=== PATIENT | female | born 1980 | race Caucasian/White ===

== ENCOUNTER 2020-05-20 11:08 | Outpatient (CLI) | payer BC, SELFPAY ==
--- NOTE | 2020-05-20 11:23 | XR_ITS ---
WS: [id number] Left foot, 3 views, 05/20/2020 Clinical Data: LEFT FOOT PAIN Comparison: None. Findings: No fractures or dislocations are seen. No bone destruction or erosion is noted. The joint spaces and soft tissues are normal. Mild flexion deformity of the second through fifth toes is seen. There is an Achilles spur. XR/XR foot LT min 3V* [id number] Impression: Negative left foot.
== END 2020-05-20 11:09 | disposition home or self-care (01) ==
PROVIDERS: PCP Family Medicine; Visit Provider Family Medicine
DX: M79.672 Pain in left foot (principal)
CPT/HCPCS: 73630

== ENCOUNTER 2021-01-13 08:34 | Outpatient (CLI) | payer BC, SELFPAY ==
[2021-01-13 09:20] VITALS: BP 100/67; PULSE 96; RESP 18; TEMP 36.8; O2SAT 98; BMI 31.2
[2021-01-13 10:00] VITALS: BP 93/55; PULSE 96; RESP 18; O2SAT 94
[2021-01-13 10:58] VITALS: BP 95/55; PULSE 98; RESP 18; TEMP 37; O2SAT 96
== END 2021-01-13 08:35 | disposition home or self-care (01) ==
LOC: OPS 08:39
PROVIDERS: PCP Family Medicine; Visit Provider Family Medicine
DX: U07.1 COVID-19 (principal)
CPT/HCPCS: 96365

== ENCOUNTER 2021-01-16 11:56 | Emergency (ER) | payer BC, SELFPAY ==
[2021-01-16] VITALS (7 sets, daily range): BP systolic 88–111; BP diastolic 64–75; PULSE 72–93; RESP 14–18; TEMP 37.1; O2SAT 98–99; BMI 31.2
--- NOTE | 2021-01-16 12:28 | W.ED.NAVMDI ---
HPI - Nausea/Vomiting/Diarrhea General: Chief complaint: Nausea/Vomiting/Diarrhea Stated complaint: Covid (+): weak, SOB, n/v Time Seen by Provider: 01/16/21 12:24 History of Present Illness: HPI Narrative: Patient relates she has had COVID symptoms for a couple weeks. Was diagnosed on 01 10 with Covid. But had symptoms week prior. Since she had a Bam infusion she has had some nausea and vomiting and diarrhea and abdominal discomfort no cough. Says she not able to hold much down feels dizzy. MD elicited complaint: nausea, vomiting, diarrhea and abdominal pain Pertinent past history: other (Covid) Onset (ago): day(s) Associated nausea: Yes Associated abdominal pain: Yes Location of pain: Diffuse Relieving factors: none Associated symtoms: Reports dizziness and nausea; Denies anxiety, change in vision or chest pain Review of Systems Const: Denies: fever(s), chills or body aches Eyes: Denies: change in vision or blurry vision ENMT: Denies: throat pain or nasal congestion Card: Denies: chest pain or dyspnea on exertion Resp: Denies: dyspnea, productive cough or non-productive cough GI: Reports: abdominal pain, nausea, vomiting and diarrhea Musc: Denies: extremity pain Skin/Breast: Denies: rash Neuro: Reports: dizziness Psych: Denies: anxiety or depression Kodak/Lymph: Denies: easy bruising Physical Exam Const: COMMON NORMALS: no acute distress GENERAL APPEARANCE: cooperative Resp: COMMON NORMALS: normal respiratory effort Psych: COMMON NORMALS: cooperative Skin: COMMON NORMALS: no rashes or lesions noted GENERAL SKIN EXAM: no rashes or lesions noted Course Vital Signs: Vital signs: Vital Signs Temperature 98.8 F 01/16/21 12:14 Pulse Rate 72 01/16/21 14:57 Respiratory Rate 18 01/16/21 14:57 Blood Pressure 106/64 01/16/21 14:57 Pulse Oximetry 98 01/16/21 14:57 MDM - Nausea/Vomiting/Diarrhea MDM Narrative: Medical decision making narrative: With Covid symptoms. Abdominal discomfort. Labs normal except urine shows urobilinogen bili does have 2+ bacteria but many epithelial cells so does not appear to be urinary tract infection. Symptoms consistent with Covid diagnosis. Medication did help still has slight nausea fluids were done patient discharged home to increase fluids take medication. Lab Data: Labs: Lab Results 01/16/21 01/16/21 01/16/21 Range/Units 12:50 12:50 13:55 WBC 7.1 (4.0-10.0) 10^3/ uL RBC 4.52 (4.1-5.3) 10^6/u L Hgb 11.8 (11.5-15.3) g/dL Hct 36.9 L (37.0-47.0) % MCV 81.6 (81-99) fl MCH 26.1 L (28.0-34.0) pg MCHC 32.0 (30.0-36.0) g/dL RDW 14.6 (12.1-15.1) % Plt Count 322 (130-400) 10^3/c mm MPV 9.8 (7.4-10.4) fL Neut % (Auto) 67.1 % Lymph % (Auto) 24.8 % [place] % (Auto) 6.2 % Eos % (Auto) 0.1 % Baso % (Auto) 0.1 % Neut # (Auto) 4.78 (1.8-7.7) 10^3/u L Lymph # (Auto) 1.8 (0.8-4.8) 10^3/u L [place] # (Auto) 0.4 (0.2-0.9) 10^3/u L Eos # (Auto) 0.0 (0.0-0.8) 10^3/u L Baso # (Auto) 0.0 (0.0-0.1) 10^3/u L Nucleated RBC % (a uto) 0 % Nucleated RBCs # 0.0 /100WBC Sodium 138 (136-145) mmol/L Potassium 3.5 (3.5-5.1) mmol/L Chloride 103 (98-107) mmol/L Carbon Dioxide 25 (22-29) mmol/L Anion Gap 13.5 (5-19) BUN 14 (6-20) mg/dL Creatinine 0.6 (0.5-0.9) mg/dL GFR Calculation 111.3 (90-130) mL/min Glucose 87 (65-115) mg/dL Calculated Osmolal ity 286 (285-295) mOsm/k g Calcium 8.0 L (8.5-10.5) mg/dL Urine Color Dark yellow (Yellow) Urine Appearance Cloudy (CLEAR) Urine pH 6 (5-7) Ur Specific Gravit y 1.010 (1.005-1.030) Urine Protein Trace (Negative) Urine Glucose (UA) Norm (Normal) Urine Ketones Negative (Negative) Urine Blood Neg (Negative) Urine Nitrate Negative (Negative) Urine Bilirubin 1+ H (Negative) Urine Urobilinogen 4 H (Negative) mg/dL Ur Leukocyte Bailey ase Negative (Negative) Urine RBC None (0-2) /hpf Urine WBC 0-4 H (0-5) /hpf Ur Squamous Epith Cells 15-25 H (0-5) /hpf Amorphous Sediment Not Reportable Urine Bacteria 2+ H (NONE) /hpf Urine Mucus 2+ /hpf Discharge Plan Discharge Patient Disposition: Home Clinical Impression: COVID-19 Abdominal pain Qualifiers: Abdominal location: generalized Qualified Code(s): R10.84 - Generalized abdominal pain Condition: Stable Prescriptions: New Zofran 4 mg tablet 4 mg PO Q8H 3 Days Qty: 9 RF: 0 Celebrex 100 mg capsule 100 mg PO BID Qty: 20 RF: 0 No Action aspirin 81 mg tablet,delayed release (DR/EC) 81 mg PO DAILY RF: 0 levothyroxine 50 mcg tablet 50 mcg PO DAILY RF: 0 zinc gluconate 50 mg tablet 50 mg PO DAILY RF: 0 Tri-Estarylla 0.18/0.215/0.25 mg-35 mcg (28) tablet 1 tab PO DAILY RF: 0 Vitamin D3 50 mcg (2,000 unit) capsule 2,000 mcg PO DAILY RF: 0 Discharge Orders: Discharge ED (Routine); Ordered 01/16/21 Ordered By: Marcial Silverman Referrals: Gibran Jacques MD [Primary Care Provider] - Discharge Diet: Advance as tolerated Discharge Activity: Increase activity as tolerated Patient Instructions: Viral Syndrome (ED) Activity Restrictions/Additional Instructions: Follow-up with medical provider as directed. Take medications as prescribed. Return to the ER or your medical provider if condition worsens. Please read and understand discharge instructions. If any questions ask please. Coding Level of Care Code ED Broomcorn Thresher for Chg Fwd Exam Expanded Problem Focused
[2021-01-16] MEDS: sodium chloride 0.9% 1,000 ML 999 ML IV (12:53)
[2021-01-16] MEDS: ondansetron 2 mg/ML SDV 2 mL 8 MG IVP (12:53)
--- NOTE | 2021-01-16 13:19 | PC.NURSE ---
patient c/o body ache 06/17, no acute distress noted.
[2021-01-16 13:20] LABS: Basophils % 0.1 %; Eosinophils % 0.1 %; Hematocrit 36.9 % (37.0-47.0); Hemoglobin 11.8 g/dL (11.5-15.3); Lymphocytes # 1.8 10^3/uL (0.8-4.8); Lymphocytes % 24.8 %; Mean Corpuscular Hemoglobin 26.1 pg (28.0-34.0); Mean Corpuscular Volume 81.6 fl (81-99); Mean Platelet Volume 9.8 fL (7.4-10.4); Monocytes # 0.4 10^3/uL (0.2-0.9); Monocytes % 6.2 %; Neutrophils # 4.78 10^3/uL (1.8-7.7); Neutrophils % 67.1 %; Nucleated Red Blood Cells % 0 %; Platelet Count 322 10^3/cmm (130-400); Red Blood Count 4.52 10^6/uL (4.1-5.3); Red Cell Distribution Width 14.6 % (12.1-15.1); White Blood Count 7.1 10^3/uL (4.0-10.0)
[2021-01-16 13:31] LABS: Anion Gap 13.5 (5-19); Blood Urea Nitrogen 14 mg/dL (6-20); Carbon Dioxide 25 mmol/L (22-29); Chloride 103 mmol/L (98-107); Glomerular Filtration Rate 111.3 mL/min (90-130); Glucose 87 mg/dL (65-115); Osmolality Calculated 286 mOsm/kg (285-295); Potassium 3.5 mmol/L (3.5-5.1); Sodium 138 mmol/L (136-145)
[2021-01-16 14:49] LABS: Add Urine Microscopic? YES; Bilirubin Urine 1+ (Negative); Blood Urine Neg (Negative); Glucose Urine UA Norm (Normal); Ketones Urine Negative (Negative); Leukocyte Esterase Urine Negative (Negative); Nitrate Urine Negative (Negative); Protein Urine Trace (Negative); Urine Appearance Cloudy (CLEAR); Urine Color Dark Yellow (Yellow); Urobilinogen Urine 4 mg/dL (Negative); pH Urine 6 (5-7)
[2021-01-16] MEDS: metoclopramide 5 mg/mL SDV 2 mL IVP (14:53)
[2021-01-16 15:16] LABS: Bacteria Urine 2+ /hpf; Mucus Urine 2+ /hpf; Squamous Epithelial Cell Urine 15-25 /hpf (0-5); WBC Urine 0-4 /hpf (0-5)
[2021-01-16 15:17] LABS: Add Urine Culture? No
[2021-01-16 15:43] LABS: Lipase 95 U/L (13-60)
--- NOTE | 2021-01-16 15:54 | USR_ITS ---
PROCEDURE INFORMATION: Exam: US Abdomen Complete Exam date and time: 01/16/2021 3:54 PM Age: 41 years old Clinical indication: Abdominal pain; Additional info: Luq pain TECHNIQUE: Imaging protocol: Real-time ultrasound of the abdomen with image documentation. COMPARISON: US OB Limited [id number] 01/15/2019 10:02 AM FINDINGS: Liver: Unremarkable. Gallbladder: Poorly seen but possibly contracted with stones. Common bile duct: No stones. No ductal dilatation. Pancreas: Unremarkable as visualized. Right kidney: No mass. No definite stones. No hydronephrosis. Left kidney: No mass. No definite stones. No hydronephrosis. Spleen: Unremarkable. Aorta: Unremarkable as visualized. No aneurysm. Inferior vena cava: Unremarkable as visualized. US/US abdomen complete* [id number] IMPRESSION: Suboptimal visualization of the gallbladder, possibly contracted with stones. If clinically indicated, HIDA scan would provide a more sensitive evaluation for acute gallbladder pathology.
[2021-01-16 16:50] LABS: Alanine Aminotransferase 218 U/L (0-33); Aspartate Amino Transferase 70 U/L (0-32); Gamma Glutamyl Transferase 39 U/L (5-36); Lactate Dehydrogenase 242 U/L (135-214)
--- NOTE | 2021-01-16 18:24 | ED_ITS ---
HPI - Abdominal Pain General: Chief Complaint: Nausea/Vomiting/Diarrhea Stated Complaint: Covid (+): weak, SOB, n/v Time Seen by Provider: 01/16/21 12:24 Source: patient Mode of arrival: ambulatory Limitations: no limitations History of Present Illness: HPI narrative: Covid + on 11th day of quarantine. Developed significant right upper quadrant pain, intolerance to most foods has not been able to eat in 5 days. MD elicited complaint: abdominal pain Pertinent past history: other (Covid infection) Pain Consistency: constant Location: RUQ Severity: severe Pain scale (0-10): 9 Quality: sharp and dull Migration to: no migration Exacerbating factors: eating and movement Relieving factors: nothing Associated Symptoms: Reports diarrhea, nausea, poor appetite and vomiting Review of Systems General: Reports: 10 or more systems reviewed and unremarkable except in HPI and below GI: Reports: abdominal pain (RUQ), nausea, vomiting and diarrhea Physical Exam Const: COMMON NORMALS: average body habitus, patient oriented x3, alert and well nourished GENERAL APPEARANCE: ill appearing HENMT: COMMON NORMALS: normocephalic and atraumatic HEAD & SCALP: normocephalic and atraumatic Eye: COMMON NORMALS: Equal, round and reactive pupils present and EOMs intact bilaterally PUPIL: Yes Equal, round and reactive pupils present Neck/C-Spine: COMMON NORMALS: full ROM and no lymphadenopathy GI: COMMON NORMALS: Soft to palpation INSPECTION: Yes normal to inspection AUSCULTATION: Yes normoactive bowel sounds PALPATION: Yes Soft to palpation and Yes Tenderness to palpation present (GI) Details: RUQ ([place] sign +) : COMMON NORMALS: Yes no CVA tenderness BLADDER/KIDNEY EXAM: Yes no CVA tenderness Back/Pelvis: COMMON NORMALS: no CVA tenderness Neuro: COMMON NORMALS: patient oriented x3 SENSORIUM/ORIENTATION: Yes alert Psych: COMMON NORMALS: mental status grossly normal, Normal thought process present, cooperative, normal affect, speech normal, activity/motor behavior normal and denies hallucinations SPEECH: Yes normal speech THOUGHT PROCESS: Normal thought process present Skin: COMMON NORMALS: no rashes or lesions noted, no wounds, turgor normal, no jaundice, no petechiae and no mottling GENERAL SKIN EXAM: no rashes or lesions noted and turgor normal Course ED course: Assumed care from Marcial PETERSENP. Unable to visualize gallbladder through ultrasound, will complete further imaging through recommendation of radiologist. Patient has significant right upper quadrant pain along with significant nausea. Will complete CT with contrast and attempts for better visualization of gallbladder. Patient is on day 11 of quarantine- Covid positive. Reevaluation(s): Reevaluation #1: Discussed case with Dr. Medrano he feels that he can follow-up with patient next week. No further imaging necessary at this time. Patient will schedule follow-up appointment with Dr. Jacques. Discussed symptoms with patient that would warrant a return to the emergency department or immediate evaluation including dyspnea and respiratory distress worsening of Covid symptoms along with inability to hold fluids down despite taking medication for nausea and vomiting. She is to wear her scopolamine patch for that the next 3 days. Any change in severity to her abdominal pain, or vomiting of bile. Discussed the case this complex due to her Mag lithiasis and concurrent COVID-[address] revealed constipation with moderately retained stool patient will follow at home [id number] constipation regimen of choice. Time: 20:56 Vital Signs: Vital signs: Vital Signs Temperature 98.8 F 01/16/21 12:14 Pulse Rate 76 01/16/21 20:19 Respiratory Rate 17 01/16/21 20:19 Blood Pressure 109/64 01/16/21 20:19 Pulse Oximetry 99 01/16/21 20:19 MDM - Abdominal Pain MDM Narrative: Medical decision making narrative: Discussed case with Dr. Medrano awaiting CT of abdomen and pelvis. 1 L of lactated Ringer's in addition to Protonix and scopolamine patch given at his request. Lab Data: Attestation: I reviewed the patient's lab results. Labs: Lab Results 01/16/21 01/16/21 01/16/21 Range/Units 12:50 12:50 12:50 WBC 7.1 (4.0-10.0) 10^3/ uL RBC 4.52 (4.1-5.3) 10^6/u L Hgb 11.8 (11.5-15.3) g/dL Hct 36.9 L (37.0-47.0) % MCV 81.6 (81-99) fl MCH 26.1 L (28.0-34.0) pg MCHC 32.0 (30.0-36.0) g/dL RDW 14.6 (12.1-15.1) % Plt Count 322 (130-400) 10^3/c mm MPV 9.8 (7.4-10.4) fL Neut % (Auto) 67.1 % Lymph % (Auto) 24.8 % [place] % (Auto) 6.2 % Eos % (Auto) 0.1 % Baso % (Auto) 0.1 % Neut # (Auto) 4.78 (1.8-7.7) 10^3/u L Lymph # (Auto) 1.8 (0.8-4.8) 10^3/u L [place] # (Auto) 0.4 (0.2-0.9) 10^3/u L Eos # (Auto) 0.0 (0.0-0.8) 10^3/u L Baso # (Auto) 0.0 (0.0-0.1) 10^3/u L Nucleated RBC % (a uto) 0 % Nucleated RBCs # 0.0 /100WBC Sodium 138 (136-145) mmol/L Potassium 3.5 (3.5-5.1) mmol/L Chloride 103 (98-107) mmol/L Carbon Dioxide 25 (22-29) mmol/L Anion Gap 13.5 (5-19) BUN 14 (6-20) mg/dL Creatinine 0.6 (0.5-0.9) mg/dL GFR Calculation 111.3 (90-130) mL/min Glucose 87 (65-115) mg/dL Calculated Osmolal ity 286 (285-295) mOsm/k g Calcium 8.0 L (8.5-10.5) mg/dL Total Bilirubin (0.15-1.2) mg/dL GGT (5-36) U/L AST (0-32) U/L ALT (0-33) U/L Alkaline Phosphata se (35-105) IU/L Lactate Dehydrogen ase (135-214) U/L Lipase 95 H (13-60) U/L HCG, Qual (Negative) Urine Color (Yellow) Urine Appearance (CLEAR) Urine pH (5-7) Ur Specific Gravit y (1.005-1.030) Urine Protein (Negative) Urine Glucose (UA) (Normal) Urine Ketones (Negative) Urine Blood (Negative) Urine Nitrate (Negative) Urine Bilirubin (Negative) Urine Urobilinogen (Negative) mg/dL Ur Leukocyte Bailey ase (Negative) Urine RBC (0-2) /hpf Urine WBC (0-5) /hpf Ur Squamous Epith Cells (0-5) /hpf Amorphous Sediment Urine Bacteria (NONE) /hpf Urine Mucus /hpf 01/16/21 01/16/21 01/16/21 Range/Units 12:50 12:50 12:50 WBC (4.0-10.0) 10^3/ uL RBC (4.1-5.3) 10^6/u L Hgb (11.5-15.3) g/dL Hct (37.0-47.0) % MCV (81-99) fl MCH (28.0-34.0) pg MCHC (30.0-36.0) g/dL RDW (12.1-15.1) % Plt Count (130-400) 10^3/c mm MPV (7.4-10.4) fL Neut % (Auto) % Lymph % (Auto) % [place] % (Auto) % Eos % (Auto) % Baso % (Auto) % Neut # (Auto) (1.8-7.7) 10^3/u L Lymph # (Auto) (0.8-4.8) 10^3/u L [place] # (Auto) (0.2-0.9) 10^3/u L Eos # (Auto) (0.0-0.8) 10^3/u L Baso # (Auto) (0.0-0.1) 10^3/u L Nucleated RBC % (a uto) % Nucleated RBCs # /100WBC Sodium (136-145) mmol/L Potassium (3.5-5.1) mmol/L Chloride (98-107) mmol/L Carbon Dioxide (22-29) mmol/L Anion Gap (5-19) BUN (6-20) mg/dL Creatinine (0.5-0.9) mg/dL GFR Calculation (90-130) mL/min Glucose (65-115) mg/dL Calculated Osmolal ity (285-295) mOsm/k g Calcium (8.5-10.5) mg/dL Total Bilirubin 0.5 (0.15-1.2) mg/dL GGT 39 H (5-36) U/L AST 70 H (0-32) U/L ALT 218 H (0-33) U/L Alkaline Phosphata se 54 (35-105) IU/L Lactate Dehydrogen ase 242 H (135-214) U/L Lipase (13-60) U/L HCG, Qual Negative (Negative) Urine Color (Yellow) Urine Appearance (CLEAR) Urine pH (5-7) Ur Specific Gravit y (1.005-1.030) Urine Protein (Negative) Urine Glucose (UA) (Normal) Urine Ketones (Negative) Urine Blood (Negative) Urine Nitrate (Negative) Urine Bilirubin (Negative) Urine Urobilinogen (Negative) mg/dL Ur Leukocyte Bailey ase (Negative) Urine RBC (0-2) /hpf Urine WBC (0-5) /hpf Ur Squamous Epith Cells (0-5) /hpf Amorphous Sediment Urine Bacteria (NONE) /hpf Urine Mucus /hpf 01/16/21 Range/Units 13:55 WBC (4.0-10.0) 10^3/ uL RBC (4.1-5.3) 10^6/u L Hgb (11.5-15.3) g/dL Hct (37.0-47.0) % MCV (81-99) fl MCH (28.0-34.0) pg MCHC (30.0-36.0) g/dL RDW (12.1-15.1) % Plt Count (130-400) 10^3/c mm MPV (7.4-10.4) fL Neut % (Auto) % Lymph % (Auto) % [place] % (Auto) % Eos % (Auto) % Baso % (Auto) % Neut # (Auto) (1.8-7.7) 10^3/u L Lymph # (Auto) (0.8-4.8) 10^3/u L [place] # (Auto) (0.2-0.9) 10^3/u L Eos # (Auto) (0.0-0.8) 10^3/u L Baso # (Auto) (0.0-0.1) 10^3/u L Nucleated RBC % (a uto) % Nucleated RBCs # /100WBC Sodium (136-145) mmol/L Potassium (3.5-5.1) mmol/L Chloride (98-107) mmol/L Carbon Dioxide (22-29) mmol/L Anion Gap (5-19) BUN (6-20) mg/dL Creatinine (0.5-0.9) mg/dL GFR Calculation (90-130) mL/min Glucose (65-115) mg/dL Calculated Osmolal ity (285-295) mOsm/k g Calcium (8.5-10.5) mg/dL Total Bilirubin (0.15-1.2) mg/dL GGT (5-36) U/L AST (0-32) U/L ALT (0-33) U/L Alkaline Phosphata se (35-105) IU/L Lactate Dehydrogen ase (135-214) U/L Lipase (13-60) U/L HCG, Qual (Negative) Urine Color Dark yellow (Yellow) Urine Appearance Cloudy (CLEAR) Urine pH 6 (5-7) Ur Specific Gravit y 1.010 (1.005-1.030) Urine Protein Trace (Negative) Urine Glucose (UA) Norm (Normal) Urine Ketones Negative (Negative) Urine Blood Neg (Negative) Urine Nitrate Negative (Negative) Urine Bilirubin 1+ H (Negative) Urine Urobilinogen 4 H (Negative) mg/dL Ur Leukocyte Bailey ase Negative (Negative) Urine RBC None (0-2) /hpf Urine WBC 0-4 H (0-5) /hpf Ur Squamous Epith Cells 15-25 H (0-5) /hpf Amorphous Sediment Not Reportable Urine Bacteria 2+ H (NONE) /hpf Urine Mucus 2+ /hpf Imaging Data ^: US: Radiologist's impression: Unable to completely visualize gallbladder recommend further imaging. Discharge Plan Discharge Patient Disposition: Home Clinical Impression: COVID-19 Cholelithiasis Qualifiers: Cholelithiasis location: gallbladder Cholecystitis presence: without terell cystitis Biliary obstruction: without biliary obstruction Qualified Code(s): K80.20 - Calculus of gallbladder without cholecystitis without obstruction Condition: Stable Prescriptions: New Zofran 4 mg tablet 4 mg PO Q8H 3 Days Qty: 9 RF: 0 Celebrex 100 mg capsule 100 mg PO BID Qty: 20 RF: 0 No Action aspirin 81 mg tablet,delayed release (DR/EC) 81 mg PO DAILY RF: 0 levothyroxine 50 mcg tablet 50 mcg PO DAILY RF: 0 zinc gluconate 50 mg tablet 50 mg PO DAILY RF: 0 Tri-Estarylla 0.18/0.215/0.25 mg-35 mcg (28) tablet 1 tab PO DAILY RF: 0 Vitamin D3 50 mcg (2,000 unit) capsule 2,000 mcg PO DAILY RF: 0 Discharge Orders: Discharge ED (Routine); Ordered 01/16/21 Ordered By: Marcial Silverman Referrals: Pb Medrano MD [Physician] - 4-7 days Gibran Jacques MD [Primary Care Provider] - 1-3 days Discharge Diet: Clear Liquid and Full LIquid Discharge Activity: Increase activity as tolerated Patient Instructions: Cholelithiasis, Pneumonia - Viral, Vomiting - Adult Activity Restrictions/Additional Instructions: Follow-up with medical provider as directed. Take medications as prescribed. Return to the ER or your medical provider if condition worsens. Please read and understand discharge instructions. If any questions ask please. Coding Level of Care Code ED Crushed Stone Grader for Mouna Fwd Exam Comprehensive
[2021-01-16] MEDS: ondansetron 2 mg/ML SDV 2 mL 4 MG IVP (18:31)
--- NOTE | 2021-01-16 18:54 | CTR_ITS ---
PROCEDURE INFORMATION: Exam: CT Abdomen And Pelvis With Contrast Exam date and time: 01/16/2021 6:54 PM Age: 41 years old Clinical indication: Abdominal pain; Localized; Right upper quadrant (ruq); Patient HX: Covid+ C/O ruq abd pain x 1 week w n/v; Additional info: Ruq pain TECHNIQUE: Imaging protocol: Computed tomography of the abdomen and pelvis with contrast. Axial, coronal and sagittal reformatted images were created and reviewed. Radiation optimization: All CT scans at this facility use at least one of these dose optimization techniques: automated exposure control; mA and/or kV adjustment per patient size (includes targeted exams where dose is matched to clinical indication); or iterative reconstruction. Contrast material: OMNI 300; Contrast volume: 95 ml; Contrast route: INTRAVENOUS (IV); COMPARISON: US abdomen complete* [id number] 01/16/2021 4:18 PM RADIATION DOSE METRICS: Total DLP (mGy-cm): 1529.47 FINDINGS: Lungs: Patchy bibasilar ground-glass infiltrates with associated interstitial thickening, predominantly peripheral in distribution. Mediastinal space: Small hiatal hernia. Liver: Unremarkable. Gallbladder and bile ducts: Cholelithiasis. Pancreas: Unremarkable. Spleen: Unremarkable. Adrenal glands: Normal. No mass. Kidneys and ureters: No mass. No radiodense calculi. No hydronephrosis. Stomach and bowel: Moderate amount of retained stool in the colon. No obstruction. No bowel wall thickening. No pneumatosis. Appendix: Normal. Intraperitoneal space: No free fluid. No organized fluid collection. No free air. Vasculature: Unremarkable. No aneurysm. Lymph nodes: No pathologically enlarged lymph nodes. Urinary bladder: Unremarkable as visualized. Reproductive: Unremarkable. Bones/joints: No acute osseous abnormality. Soft tissues: Small, fat containing umbilical hernia. CT/CT abdomen pelvis w con* [id number] IMPRESSION: 1. Cholelithiasis without CT evidence of acute cholecystitis. 2. Patchy bibasilar ground-glass infiltrates with associated interstitial thickening, predominantly peripheral in distribution. Commonly reported imaging features of COVID-19 pneumonia are present. Other processes such as influenza pneumonia and organizing pneumonia, as can be seen with drug toxicity and connective tissue disease, can cause a similar imaging pattern. (Reference: Ned) 3. Additional findings, as above. REFERENCES: Ned Castillo, et al., Radiological Society of [place] Expert Consensus Statement on Reporting Chest CT Findings Related to COVID-19. Endorsed by the Society of Thoracic Radiology, the [place] [employer], and RSNA. Published July 31, 2019. Radiation Dose CTDIVOL = (mGy): DLP = 1529.47 (mGy-cm)
[2021-01-16 19:10] LABS: HCG, Serum Qual Negative (Negative)
[2021-01-16 19:15] LABS: Alkaline Phosphatase 54 IU/L (35-105); Total Bilirubin 0.5 mg/dL (0.15-1.2)
[2021-01-16] MEDS: iohexol 300 mg/mL 100 mL Btl IV (20:06)
[2021-01-16] MEDS: scopolamine 1.5 Patch 1 PATCH TRANSDERMA (20:15)
[2021-01-16] MEDS: pantoprazole 40 mg SDV IVP (20:15)
[2021-01-16] MEDS: lactated ringers 1,000 ML 999 ML IV (20:19)
== END 2021-01-16 21:41 | disposition home or self-care (01) ==
PROVIDERS: Nurse Practitioner Family; Emergency Provider Nurse Practitioner Family; PCP Family Medicine
DX: U07.1 COVID-19 (principal); K80.20 Calculus of gallbladder without cholecystitis without obstruction; Z79.82 Long term (current) use of aspirin
CPT/HCPCS: 74177; 76700; 80048; 81001; 82247; 82977; 83615; 83690; 84075; 84080; 84450; 84460; 84703; 85025; 96361; 96374; 96375; 96376; 99284; C9113; J2405; J2765; J7030; Q9967

== ENCOUNTER → 2021-10-25 15:08 | Outpatient (BNVA) | payer BC, SELFPAY | PROVIDERS: PCP Family Medicine; Visit Provider Clinical Nurse Specialist Adult Health | DX: R53.83 Other fatigue (principal) | CPT/HCPCS: 82670; 83001; 84144; 84403; 84443 ==

== ENCOUNTER 2024-12-07 20:49 | Outpatient (CLI) | payer OTHER, SELFPAY ==
[2024-12-07] VITALS (34 sets, daily range): BP systolic 107–126; BP diastolic 55–84; PULSE 70–97; O2SAT 93–100; BMI 34.4
[2024-12-08] VITALS: BP 117/64; PULSE 72; RESP 18; O2SAT 97
[2024-12-08] MEDS: NIFEdipine ER (24 hr) 30 mg Tablet PO (00:01)
[2024-12-08 00:11] VITALS: BP 117/64; PULSE 72
== END 2024-12-08 00:20 | disposition home or self-care (01) ==
LOC: OPOB 20:50 → OBGYN 20:50
PROVIDERS: PCP Family Medicine; Visit Provider Family Medicine
DX: O26.899 Other specified pregnancy related conditions, unspecified trimester (principal); Z3A.00 Weeks of gestation of pregnancy not specified; R10.9 Unspecified abdominal pain
CPT/HCPCS: 59025; 96372; 99211; J3105; J9999

== ENCOUNTER → 2024-12-18 08:26 | Outpatient (BNVA) | payer OTHER, SELFPAY | PROVIDERS: PCP Family Medicine; Visit Provider Obstetrics & Gynecology | DX: Z34.80 Encounter for supervision of other normal pregnancy, unspecified trimester (principal) | CPT/HCPCS: 84315 ==

== ENCOUNTER → 2024-12-27 09:17 | Outpatient (BNVA) | payer OTHER, SELFPAY | PROVIDERS: PCP Family Medicine; Visit Provider Nurse Practitioner Women's Health | DX: Z34.90 Encounter for supervision of normal pregnancy, unspecified, unspecified trimester (principal) | CPT/HCPCS: 84315; 87081 ==

== ENCOUNTER → 2025-01-02 09:31 | Outpatient (BNVA) | payer OTHER, SELFPAY | PROVIDERS: PCP Family Medicine; Visit Provider Obstetrics & Gynecology | DX: O09.90 Supervision of high risk pregnancy, unspecified, unspecified trimester (principal) | CPT/HCPCS: 84315 ==

== ENCOUNTER → 2025-01-08 14:40 | Outpatient (BNVA) | payer OTHER, SELFPAY | PROVIDERS: PCP Family Medicine; Visit Provider Obstetrics & Gynecology | DX: O09.90 Supervision of high risk pregnancy, unspecified, unspecified trimester (principal) | CPT/HCPCS: 84315 ==

== ENCOUNTER 2025-01-10 08:42 | Inpatient (IN) | payer OTHER, SELFPAY ==
[2025-01-10] VITALS (35 sets, daily range): BP systolic 117–153; BP diastolic 68–88; PULSE 59–90; RESP 18; TEMP 36.4–36.9; BMI 35.2
[2025-01-10 08:23] LABS: Hematocrit 34.8 % (36-47); Hemoglobin 11.80 g/dL (11.27-16.99); Mean Corpuscular HGB Conc 33.9 g/dL (30-55); Mean Corpuscular Hemoglobin 29.4 pg (27-33); Mean Corpuscular Volume 86.6 fl (85-98); Nucleated Red Blood Cells % 0 %; Platelet Count 222 10^3/cmm (157-399); Red Blood Count 4.02 10^6/uL (3.85-5.65); White Blood Count 7.89 10^3/uL (3.29-11.43)
--- NOTE | 2025-01-10 09:20 | P.HP_ITS ---
Providers/Chief Complaint 2 Admitting Physician: Ruddy Mcmullen MD Primary BUSINESS ANALYSIS CONSULTANT: Ruddy Mcmullen MD Primary Care Provider: Gibran Jacques MD Chief Complaint: IOL HPI BUSINESS ANALYSIS CONSULTANT History of Present Illness Patito Ivan is a 44 year old female A1 L6 (twins) EDC January 16, 2025 At 39 w 1 d No complications Admitted for elective induction of labor No c/o + active movements h/o x five Present Details : 7 Para: 6 Labs Rubella: Immune RPR: Negative GBS: Negative Medications/Allergies Home Medications ?Medication ?Instructions ?Recorded ?Confirmed ?Last Taken ?Type levothyroxine 50 mcg tablet See Rx Instructions .Route 11/10/22 01/08/25 Unknown Rx .COMPLEX #90 tabs albuterol sulfate 90 mcg/actuation 2 puff inhalation Q 6H PRN 04/04/23 01/08/25 Unknown Rx aerosol inhaler shortness of breath or wheez ing #8.5 grams aspirin 81 mg capsule 81 mg PO DAILY 12/08/2407/30 Unknown History [id number] 1 mg 1 tab PO DAILY 01/08/25 Unknown History tablet Allergies Allergy/AdvReac Type Severity Reaction Status Date / Time amoxicillin (From Augmentin) Allergy ALGY-Difficulty Verified 01/08/25 14:33 Swallowing clavulanic acid (From Allergy ALGY-Difficulty Verified 01/08/25 14:33 Augmentin) Swallowing PFSH BUSINESS ANALYSIS CONSULTANT 2 PFSH: Medical History (Updated 01/11/25 @ 09:47 by Ruddy Mcmullen MD) Mild intermittent asthma Surgical History Hx of cholecystectomy Family History Father Colon cancer Grandmother Colon cancer Heart disease Hyperlipidemia Hypertension Grandfather Heart disease Hyperlipidemia Hypertension Mother Hypertension Ovarian cancer Denies family history of Prostate cancer Diabetes Breast cancer Uterine cancer Thyroid disease Stroke Social History Smoking and tobacco/nicotine status: never used tobacco/nicotine Alcohol intake: never History History History 2 7 Term 6 0 Miscarriages/Ectopic 1 Living Children 6 Care BALTAZAR Calculator 2 Estimated Delivery Date Method Current WG Current Estimate 01/16/25 Manual 39w 2d Specific Issues/Plans * * HX OF LABOR * AMA * HYPOTHYROIDISM DURING Vitals/I&O/Wt Last Vital Signs Temp 97.4 F L 01/11/25 08:15 Pulse 73 01/11/25 08:15 Resp 17 01/11/25 08:15 BP 115/76 01/11/25 08:15 Pulse Ox 97 01/11/25 08:15 O2 Del Method Room Air 01/11/25 08:15 01/10/25 01/11/25 01/11/25 22:59 06:59 14:59 Intake Total 0.65 / 0.65 5.466 / 6.116 Output Total 500 / 500 Balance 0.65 / 0.65 -494.534 / -493.884 Weight last 48 hrs Weight 212 lb Physical Exam 2 Narrative: Weight 211 lbs; 5?5? General comfortable, awake, alert VS normal Lungs: clear Cor: RRR Abd: nontender Cervix: 3 cm / 75% / -2 Ext: normal External monitor: heart tracing good variability, + accelerations Data 01/10/25 08:00 Results Labs OB ([facility]): 2 Blood Type O Positive 01/10/25 Antibody Screen Negative 01/10/25 Hct, (36-47) 34.8 % L 01/10/25 Hgb, (11.27-16.99) 11.80 g/dL 01/10/25 Rho(D) Type Rh positive 01/10/25 Plt Count, (157-399) 222 10^3/cmm 01/10/25 A&P Assessment and plan 1. Encounter for induction of labor: 39 w 1 d Admitted for elective induction of labor Fetus reassuring Plan labor management PDMP PDMP Reviewed: Not Reviewed Attestations 2 Medical Necessity Statement*: patient at 39 w 1 d, admitted for induction of labor Coding Level of Care Code Acute Code for Chg Fwd Diagnoses Encounter for induction of labor Z34.90
--- NOTE | 2025-01-10 11:05 | PM.OBGYPN ---
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 Subjective: Interval history: Fetus reassuring Mild UCs Cervix: 3 cm / 75% / -2 AROM, clear fluid Labor: Station: -1 Amniotic Membrane Status: Ruptured Monitor Mode: External Contraction Pattern: Regular Status: Category I Vitals/I&O/Wt Last Vital Signs Temp 97.4 F L 01/11/25 08:15 Pulse 73 01/11/25 08:15 Resp 17 01/11/25 08:15 BP 115/76 01/11/25 08:15 Pulse Ox 97 01/11/25 08:15 O2 Del Method Room Air 01/11/25 08:15 01/10/25 01/11/25 01/11/25 22:59 06:59 14:59 Intake Total 0.65 / 0.65 5.466 / 6.116 Output Total 500 / 500 Balance 0.65 / 0.65 -494.534 / -493.884 Weight last 48 hrs Weight 212 lb Data 01/10/25 08:00 A&P Assessment and plan 1. Encounter for induction of labor: PDMP PDMP Reviewed: Not Reviewed Attestations Medical Necessity Statement*: patient at 39 w 1 d, admitted for induction of labor Coding Level of Care Code Acute Code for Chg Fwd Diagnoses Encounter for induction of labor Z34.90
[2025-01-10] MEDS: oxytocin 30 UNIT/500 ML BAG IV (21:46)
--- NOTE | 2025-01-10 23:05 | P.PN_ITS ---
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 Subjective: Interval history: Fetus reassuring Mild UCs Pitocin started (patient refused Pitocin prior to this) Patient had AROM at 1100 today Plan start antibiotics for rupture of membranes x 12 hours Labor: Station: -1 Amniotic Membrane Status: Ruptured Monitor Mode: External Contraction Pattern: Regular Status: Category I Vitals/I&O/Wt Last Vital Signs Temp 98.0 F 01/11/25 15:50 Pulse 72 01/11/25 15:50 Resp 16 01/11/25 15:50 BP 128/79 01/11/25 15:50 Pulse Ox 99 01/11/25 10:15 O2 Del Method Room Air 01/11/25 10:15 01/11/25 01/11/25 01/11/25 06:59 14:59 22:59 Intake Total 5.466 / 6.116 Output Total 500 / 500 Balance -494.534 / -493.884 Weight last 48 hrs Weight 212 lb Data 01/11/25 13:15 A&P Assessment and plan 1. Encounter for induction of labor: PDMP PDMP Reviewed: Not Reviewed Attestations 2 Medical Necessity Statement*: patient at 39 w 1 d, admitted for induction of labor Coding Level of Care Code Acute Code for Chg Fwd Diagnoses Encounter for induction of labor Z34.90
[2025-01-11] VITALS (17 sets, daily range): BP systolic 115–157; BP diastolic 63–95; PULSE 69–101; RESP 16–17; TEMP 36.3–36.7; O2SAT 97–100
--- NOTE | 2025-01-11 00:35 | PM.DELIVERY ---
Delivery Note: Date of delivery: January 11, 2025 Pre-delivery diagnoses: 39 w 1 d induction of labor Post-delivery diagnoses: 39 w 1 d induction of labor vaginal delivery Procedure: induction of labor vaginal delivery Op report anesthesia: None Delivering Physician: Ruddy Mcmullen MD Estimated blood loss (mL): 300 Findings: , vigorous Normal placenta and cord No lacerations EBL: 300 cc No complications Pre-Delivery Course: normal labor course fetus reassuring throughout Delivery: vaginal Post-Delivery Status: good History History History 7 Term 6 0 Miscarriages/Ectopic 1 Living Children 6 A&P Assessment and plan 1. Vaginal delivery: PDMP PDMP Reviewed: Not Reviewed Coding Level of Care Code Acute Code for Chg Fwd Diagnoses Vaginal delivery O80
--- NOTE | 2025-01-11 03:18 | PC.NURSE ---
SVE preformed at 2030 3.5/60/-3 SVE preformed at 0004 5/80/-2 (patient first request for epidural due to pain) orders put in for epidural at this time by UMAIR SVE preformed at 0015 /-1 0015 pitocin stopped at this time 0017 call placed by UMAIR to provider advised of patient making rapid cervical exam and requested physician to come to bedside for imminent delivery, physician states he is on his way 0018 patient involuntarily pushing 0021 infant delivered and placed on mothers abdomen, dried and stimulated by Sharif4. 0022 physician notified of infants delivery 0026 physician to room 0028 placenta delivered by physician APGARS at 1 min 9 and 5 min 10
[2025-01-11] MEDS: PRENATAL VIT NO.130/IRON/FOLIC 1 EACH TABLET PO (08:51)
[2025-01-11 13:35] LABS: Hematocrit 34.6 % (36-47); Hemoglobin 11.80 g/dL (11.27-16.99); Mean Corpuscular HGB Conc 34.1 g/dL (30-55); Mean Corpuscular Hemoglobin 30.0 pg (27-33); Mean Corpuscular Volume 88.0 fl (85-98); Platelet Count 192 10^3/cmm (157-399); Red Blood Count 3.93 10^6/uL (3.85-5.65); White Blood Count 10.85 10^3/uL (3.29-11.43)
[2025-01-12 03:55] VITALS: BP 115/76; PULSE 67; RESP 16; TEMP 36.6; O2SAT 98
[2025-01-12] MEDS: PRENATAL VIT NO.130/IRON/FOLIC 1 EACH TABLET PO (08:59)
[2025-01-12 11:00] VITALS: BP 107/70; PULSE 69; RESP 16; TEMP 36.5; O2SAT 98
--- NOTE | 2025-01-12 13:15 | PM.OBGYPN ---
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 fundus firm Ext: no edema; nontender Hgb 11.8 Data 01/11/25 13:15 A&P Assessment and plan 1. Vaginal delivery: PPD #1 doing well discharge to home today instructions and precautions given call/return if fever, chills, headache, blurry vision, nausea, vomiting, abdominal pain; vaginal bleeding or discharge; shortness of breath, chest pain, leg pains or swelling; inability to void, perineal pain or swelling; feelings of depression or mood changes; thoughts of suicide or harming others; inability to care for baby. f/u in 6 weeks or PRN PDMP PDMP Reviewed: Not Reviewed Attestations Medical Necessity Statement*: patient s/p vaginal delivery, plan to discharge to home today Coding Level of Care Code Acute Code for Chg Fwd Diagnoses Vaginal delivery O80
--- NOTE | 2025-01-12 13:17 | P.DS_ITS ---
Discharge Providers SOFTWARE INTEGRATION DEVELOPER Date of Admission: 01/10/25 08:42 Date of Discharge: 01/12/25 Attending Provider at Admission: Ruddy Mcmullen MD Attending Provider at Discharge: Ruddy Mcmullen MD Consults: none Primary SOFTWARE INTEGRATION DEVELOPER: Ruddy Mcmullen MD Primary Care Provider: Gibran Jacques MD Diagnoses at Discharge Discharge Diagnosis 1. Vaginal delivery: Details from hospital stay: 44 y.o. A1 L6 (twins) EDC January 16, 2025 At 39 w 1 d No complications Admitted for elective induction of labor patient progressed to complete dilatation fetus was reassuring throughout patient delivered vaginally without any complications There were no perineal lacerations patient did well and was discharged to home on the first day Reason for Visit Reason for Visit: IOL Brief History: 44 y.o. A1 L6 (twins) EDC January 16, 2025 At 39 w 1 d No complications Admitted for elective induction of labor Hospital Course Hospital Course 44 y.o. A1 L6 (twins) [facility] January 16, 2025 At 39 w 1 d No complications Admitted for elective induction of labor patient progressed to complete dilatation fetus was reassuring throughout patient delivered vaginally without any complications There were no perineal lacerations patient did well and was discharged to home on the first day Information Peripartum Data: Infant Delivery Method: Vaginal Laceration description: None Episiotomy description: None complications: none Physical Exam Narrative: afebrile, VS normal comfortable, awake, alert Lungs: clear Cor: RRR Abd: soft, nontender. fundus firm Ext: no edema; nontender History History History 7 Term 6 0 Miscarriages/Ectopic 1 Living Children 6 Discharge Data Studies Completed and Pending Pending at discharge Category Date Time Status High Risk PP Hemorrhage Stat Lab 01/10/25 08:24 Received Laboratory Results WBC 10.85 10^3/uL (3.29-11.43) 01/11/25 13:15 RBC 3.93 10^6/uL (3.85-5.65) 01/11/25 13:15 Hgb 11.80 g/dL (11.27-16.99) 01/11/25 13:15 Hct 34.6 % (36-47) L 01/11/25 13:15 MCV 88.0 fl (85-98) 01/11/25 13:15 MCH 30.0 pg (27-33) 01/11/25 13:15 MCHC 34.1 g/dL (30-55) 01/11/25 13:15 RDW 13.2 % (12.1-15.1) 01/11/25 13:15 Plt Count 192 10^3/cmm (157-399) 01/11/25 13:15 MPV 10.4 fL (7.4-10.4) 01/11/25 13:15 Neut % (Auto) 61.5 % 01/10/25 08:00 Lymph % (Auto) 29.2 % 01/10/25 08:00 [place] % (Auto) 7.0 % 01/10/25 08:00 Eos % (Auto) 0.9 % 01/10/25 08:00 Baso % (Auto) 0.4 % 01/10/25 08:00 Neut # (Auto) 4.86 10^3/uL (1.8-7.7) 01/10/25 08:00 Lymph # (Auto) 2.3 10^3/uL (0.8-4.8) 01/10/25 08:00 [place] # (Auto) 0.6 10^3/uL (0.2-0.9) 01/10/25 08:00 Eos # (Auto) 0.1 10^3/uL (0.0-0.8) 01/10/25 08:00 Baso # (Auto) 0.0 10^3/uL (0.0-0.1) 01/10/25 08:00 Nucleated RBC % (auto) 0 % 01/10/25 08:00 Nucleated RBCs # 0.0 /100WBC 01/10/25 08:00 Blood Type O Positive 01/10/25 08:00 Rho(D) Type Rh positive 01/10/25 08:00 Antibody Screen Negative 01/10/25 08:00 Procedures Performed induction of labor vaginal delivery Vitals Last Vital Signs Temp 97.8 F 01/12/25 03:55 Pulse 67 01/12/25 03:55 Resp 16 01/12/25 03:55 BP 115/76 01/12/25 03:55 Pulse Ox 98 01/12/25 03:55 O2 Del Method Room Air 01/12/25 03:55 Results Labs OB ([facility]): Blood Type O Positive 01/10/25 Antibody Screen Negative 01/10/25 Hct, (36-47) 34.6 % L 01/11/25 Hgb, (11.27-16.99) 11.80 g/dL 01/11/25 Rho(D) Type Rh positive 01/10/25 Plt Count, (157-399) 192 10^3/cmm 01/11/25 Discharge Plan Discharge Patient Disposition: Home Condition: Stable Prescriptions: Continued albuterol sulfate 90 mcg/actuation HFA aerosol inhaler 2 puff inhalation Q6H PRN (Reason: shortness of breath or wheezing) Qty: 8.5 2RF levothyroxine 50 mcg tablet See Rx Instructions .ROUTE .COMPLEX Qty: 90 2RF Dose Instruction: TAKE 1 TABLET BY MOUTH EVERY DAY IN THE MORNING 30 MINUTES BEFORE BREAKFAST WITH WATER Rx Instructions: TAKE 1 TABLET BY MOUTH EVERY DAY IN THE MORNING 30 MINUTES BEFORE BREAKFAST WITH WATER [id number] 1 mg Tablet 1 tab PO DAILY aspirin 81 mg Capsule 81 mg PO DAILY Discharge Order = DC NOW: Discharge Order (Routine); Ordered 01/12/25 Ordered By: Ruddy Mcmullen Referrals: Leesa Wong NP [Nurse Practitioner, SOFTWARE INTEGRATION DEVELOPER] Referral Note: Please call [facility] first thing Monday morning to schedule your 6 week appointment. Discharge Diet: Usual diet Discharge Activity: Increase activity as tolerated Patient Instructions: Depression (DC), Preeclampsia and Eclampsia After Delivery (GEN), Hemorrhage (DC), OB Food/Drug Interaction Guide, OB Home Care, OB Vaginal Deliveries - [facility], Patient Portal & Jessa Instructions, Abnormal Bleeding Discharge Attestations SOFTWARE INTEGRATION DEVELOPER Time Spent in Discharge Care*: less than 30 min Coding Level of Care Code Acute Code for Chg Fwd Diagnoses Vaginal delivery O80
[2025-01-13 08:24] LABS: High Risk PP Hemorrhage BBK Notified
== END 2025-01-12 11:27 | disposition home or self-care (01) | DRG 807 ==
LOC: OBGYN 08:43
PROVIDERS: Admitting Provider Obstetrics & Gynecology; PCP Family Medicine; Visit Provider Obstetrics & Gynecology
DX: O99.284 Endocrine, nutritional and metabolic diseases complicating childbirth (principal); Z37.0 Single live birth; E03.9 Hypothyroidism, unspecified; Z3A.39 39 weeks gestation of pregnancy; J45.20 Mild intermittent asthma, uncomplicated; O99.52 Diseases of the respiratory system complicating childbirth; Z88.8 Allergy status to other drugs, medicaments and biological substances; Z90.49 Acquired absence of other specified parts of digestive tract
CPT/HCPCS: 36415; 59025; 59409; 85025; 85027; 86850; 86900; 99211; J2590; J3490; J7121; J9999